=== PATIENT | male | born 1970 | race Caucasian/White ===

== ENCOUNTER → 2018-05-13 | Outpatient (CLI) | payer OTHER, MEDICAID | LOC: M.ULTRA 08:27 | DX: Z01.89 Encounter for other specified special examinations (principal); R94.5 Abnormal results of liver function studies ==

== ENCOUNTER → 2018-10-17 | Outpatient (CLI) | payer OTHER, MEDICAID | LOC: M.ULTRA 08:36 | DX: R16.2 Hepatomegaly with splenomegaly, not elsewhere classified (principal); R63.4 Abnormal weight loss ==